=== PATIENT | female | born 1945 | race Caucasian/White ===

== ENCOUNTER 2016-07-14 13:55 | Outpatient (CLI) | payer MEDICARE, OTHER | END 2016-07-14 13:56 | disposition home or self-care (01) | DX: Z12.31 Encounter for screening mammogram for malignant neoplasm of breast (principal) ==

== ENCOUNTER 2017-01-29 08:07 | Outpatient (CLI) | payer MEDICARE, OTHER ==
[2017-01-29 08:48] LABS: BASOPHILS # (AUTO) 0.1 10^3/uL (0.0-0.1); BASOPHILS % (AUTO) 1.6 %; EOSINOPHILS # (AUTO) 0.3 10^3/uL (0.0-0.7); EOSINOPHILS % (AUTO) 4.2 %; HCT - HEMATOCRIT 42.3 % (37.0-47.0); HGB - HEMOGLOBIN 14.1 g/dL (12.0-16.0); LYMPHOCYTES # (AUTO) 3.3 10^3/uL (1.5-3.5); LYMPHOCYTES % (AUTO) 51.1 %; MEAN CORPUSCULAR HEMOGLOBIN 29.9 pg (27.0-31.0); MEAN CORPUSCULAR HGB CONC 33.3 g/dL (32.0-36.0); MEAN CORPUSCULAR VOLUME 89.8 fL (81.0-99.0); MEAN PLATELET VOLUME 8.8 fL (7.9-10.8); MONOCYTES # (AUTO) 0.4 10^3/uL (0.0-1.0); MONOCYTES % (AUTO) 5.9 %; NEUTROPHILS # (AUTO) 2.4 10^3/uL (1.5-6.6); NEUTROPHILS % (AUTO) 37.2 %; NUCLEATED RED BLOOD CELLS AUTO 0.2 /100WBC; RED BLOOD COUNT 4.71 10^6/uL (4.20-5.40); RED CELL DISTRIBUTION WIDTH 13.5 % (12.0-15.0); UNCORRECTED WHITE BLOOD COUNT 6.6 x10^3/uL; WHITE BLOOD COUNT 6.6 x10^3/uL (4.8-10.8)
[2017-01-29 09:02] LABS: HEMOGLOBIN A1C 0.59 g/dL
[2017-01-29 09:10] LABS: ALBUMIN/GLOBULIN RATIO 1.3 (1.0-2.2); BILIRUBIN,TOTAL 0.6 mg/dL (0.2-1.0); BUN - BLOOD UREA NITROGEN 25 mg/dL (6-20); CALCIUM 9.3 mg/dL (8.5-10.3); CARBON DIOXIDE - CO2 27 mmol/L (21-32); CHLORIDE 103 mmol/L (101-111); CHOL/HDL RATIO 4.2 (<4.4); CHOLESTEROL 245 mg/dL; CREATININE 0.8 mg/dL (0.4-1.0); GFR - MDRD 71 (>89); GLUCOSE 99 mg/dL (70-100); HDL CHOLESTEROL 59 mg/dL; POTASSIUM 3.9 mmol/L (3.5-5.0); SODIUM 138 mmol/L (135-145); TOTAL PROTEIN 6.6 g/dL (6.7-8.2); TRIGLYCERIDES 55 mg/dL; VLDL CHOLESTEROL 11 mg/dL
[2017-01-29 09:36] LABS: THYROID STIMULATING HORMONE 5.91 uIU/mL (0.34-5.60)
== END 2017-01-29 08:08 | disposition home or self-care (01) ==
LOC: LAB 08:07
PROVIDERS: ATTEND Family Medicine
DX: R73.01 Impaired fasting glucose (principal); E78.5 Hyperlipidemia, unspecified; E03.9 Hypothyroidism, unspecified; K11.9 Disease of salivary gland, unspecified
CPT/HCPCS: 36415; 80053; 80061; 83036; 84439; 84443; 85025

== ENCOUNTER 2017-04-06 14:02 | Outpatient (CLI) | payer MEDICARE, OTHER ==
--- NOTE | 2017-04-07 14:23 | XRAY Report ---
EXAM: LEFT SHOULDER RADIOGRAPHY EXAM DATE: 04/06/2017 02:30 PM. CLINICAL HISTORY: TMJ CAPSULITIS,UNSP ROTATR-CUFF TEAR/RUPTR OF LEFT. COMPARISON: 03/13/2011. TECHNIQUE: 3 views. FINDINGS: Bones: Bony mineralization appears appropriate. No acute fracture or focal osseous destruction identi fied. Joints: Glenohumeral and acromioclavicular joints with only small amount of degenerative change. No d islocation. Soft tissues: Visualized left lung appears clear. No radiopaque foreign body. IMPRESSION: 1. No acute fracture or dislocation identified. 2. Small amount of glenohumeral and acromioclavicular degenerative change. [facility] Referring Provider Line: [phone] SITE ID: [id number]
--- NOTE | 2017-04-07 14:32 | XRAY Report ---
EXAM: BILATERAL TEMPOROMANDIBULAR JOINT RADIOGRAPHY EXAM DATE: 04/06/2017 02:29 PM. CLINICAL HISTORY: TMJ CAPSULTIS. COMPARISON: None. TECHNIQUE: 5 views including open and closed mouth. FINDINGS: Bones: no fractures or bone lesions. Temporomandibular Joints: The temporomandibular joints appear unremarkable. Sinuses: no opacities or fluid levels. Other: No radiopaque foreign body. IMPRESSION: Unremarkable temporomandibular joint radiography. If clinical concern persists, consider further anatomic delineation and evaluation with dynamic TMJ M RI. [facility] Referring Provider Line: [phone] SITE ID: [id number]
== END 2017-04-06 14:03 | disposition home or self-care (01) ==
LOC: DI 14:02
PROVIDERS: ATTEND Physician Assistant Medical
DX: M19.012 Primary osteoarthritis, left shoulder (principal); M26.69 Other specified disorders of temporomandibular joint
CPT/HCPCS: 70330

== ENCOUNTER 2017-09-23 13:47 | Outpatient (CLI) | payer MEDICARE, OTHER ==
--- NOTE | 2017-09-24 17:02 | Mammography Report ---
DIGITAL SCREENING MAMMOGRAM: 09/23/2017 CLINICAL INDICATION: A 72-year-old nulliparous patient with history of benign biopsy for screening. TECHNIQUE: Routine CC and MLO projections were obtained of the breasts. COMPARISON: 06/2016, 05/2015, 05/2014, 03/2013, 02/2013, 02/2012, 02/2011, 03/2010, 02/2010. FINDINGS: The breasts again demonstrate heterogeneously dense fibroglandular parenchyma bilaterally. Post-biopsy changes in the right breast are stable. Coarse and punctate, typically benign calcifications are present. No suspicious masses, clustered microcalcifications or regions of architectural distortion are identified. IMPRESSION: BENIGN FINDINGS. RECOMMENDATION: Routine annual screening unless otherwise clinically indicated. BIRADS category 2 benign findings. STANDARD QUALIFYING STATEMENTS 1. This examination was reviewed with the aid of Computed-Aided Detection (CAD). 2. A negative or benign imaging report should not delay biopsy if clinically suspicious findings are present. Consider surgical consultation if warranted. More than 5% of cancers are not identified by imaging. 3. Dense breasts may obscure an underlying neoplasm. TD: 09/24/2017 15:14
== END 2017-09-23 13:48 | disposition home or self-care (01) ==
LOC: DI 13:47
PROVIDERS: ATTEND Family Medicine
DX: Z12.31 Encounter for screening mammogram for malignant neoplasm of breast (principal)
CPT/HCPCS: 77067

== ENCOUNTER 2018-02-19 08:54 | Outpatient (CLI) | payer MEDICARE, OTHER ==
[2018-02-19 09:38] LABS: BASOPHILS # (AUTO) 0.1 10^3/uL (0.0-0.1); BASOPHILS % (AUTO) 1.9 %; EOSINOPHILS # (AUTO) 0.6 10^3/uL (0.0-0.7); EOSINOPHILS % (AUTO) 10.3 %; HGB - HEMOGLOBIN 14.6 g/dL (12.0-16.0); LYMPHOCYTES # (AUTO) 2.2 10^3/uL (1.5-3.5); LYMPHOCYTES % (AUTO) 39.2 %; MEAN CORPUSCULAR HEMOGLOBIN 30.7 pg (27.0-31.0); MEAN CORPUSCULAR HGB CONC 34.1 g/dL (32.0-36.0); MEAN CORPUSCULAR VOLUME 90.1 fL (81.0-99.0); MEAN PLATELET VOLUME 9.3 fL (7.9-10.8); MONOCYTES # (AUTO) 0.3 10^3/uL (0.0-1.0); NEUTROPHILS # (AUTO) 2.4 10^3/uL (1.5-6.6); NEUTROPHILS % (AUTO) 42.6 %; PLT - PLATELET COUNT 223 10^3/uL (130-450); RED BLOOD COUNT 4.75 10^6/uL (4.20-5.40); RED CELL DISTRIBUTION WIDTH 13.9 % (12.0-15.0); WHITE BLOOD COUNT 5.5 x10^3/uL (4.8-10.8)
[2018-02-19 09:57] LABS: ALBUMIN 3.9 g/dL (3.2-5.5); ALBUMIN/GLOBULIN RATIO 1.3 (1.0-2.2); ALKALINE PHOSPHATASE 96 IU/L (42-121); ALT ALANINE AMINOTRANSFERASE 21 IU/L (10-60); AST ASPARTATE AMINOTRANSFERASE 23 IU/L (10-42); BUN - BLOOD UREA NITROGEN 16 mg/dL (6-20); CALCIUM 9.4 mg/dL (8.5-10.3); CARBON DIOXIDE - CO2 28 mmol/L (21-32); CHLORIDE 102 mmol/L (101-111); CHOL/HDL RATIO 4.9 (<4.4); CHOLESTEROL 267 mg/dL; CREATININE 0.6 mg/dL (0.4-1.0); GFR - MDRD 98 (>89); GLUCOSE 99 mg/dL (70-100); HDL CHOLESTEROL 55 mg/dL; LDL CHOLESTEROL,CALCULATED 195 mg/dL; LDL/HDL RATIO 3.5 (<4.4); SODIUM 138 mmol/L (135-145); TOTAL PROTEIN 6.9 g/dL (6.7-8.2); VLDL CHOLESTEROL 17 mg/dL
== END 2018-02-19 08:55 | disposition home or self-care (01) ==
LOC: LAB 08:54
PROVIDERS: ATTEND Family Medicine
DX: R73.01 Impaired fasting glucose (principal); E78.5 Hyperlipidemia, unspecified; E03.9 Hypothyroidism, unspecified; M85.80 Other specified disorders of bone density and structure, unspecified site
CPT/HCPCS: 36415; 80053; 80061; 83721; 84443; 85025

== ENCOUNTER 2018-04-09 13:20 | Emergency (ER) | payer MEDICARE, OTHER ==
[2018-04-09 13:28] VITALS: BP 139/84
[2018-04-09] MEDS ORDERED: IPRATROPIUM/ALBUTEROL 3 ML NEB INH STA (13:38)
[2018-04-09] MEDS ORDERED: DEXAMETHASONE 10 MG/ML VIAL PO STA (13:39)
--- NOTE | 2018-04-09 14:09 | XRAY Report ---
Reason: cough soa Procedure Date: 04/09/2018 Accession Number: [id number] / [id number] Procedure: XR - Chest 2 View X-Ray CPT Code: 04401 FULL RESULT: EXAM: CHEST RADIOGRAPHY EXAM DATE: 04/09/2018 01:51 PM. CLINICAL HISTORY: Cough. Shortness of breath. COMPARISON: CHEST 2 VIEW PA/LAT 05/03/2015 8:31 AM. TECHNIQUE: 2 views. FINDINGS: Lungs/Pleura: No focal opacities evident. No pleural effusion. No pneumothorax. Normal volumes. Mediastinum: Heart and mediastinal contours are unremarkable. Other: None. IMPRESSION: Normal 2-view chest radiography. [facility]
--- NOTE | 2018-04-09 14:31 | ED Physician Documentation ---
PD HPI DYSPNEA - Stated complaint Stated Complaint: DIFF BREATHING - Chief complaint Chief Complaint: Resp - History obtained from History obtained from: Patient - History of Present Illness Timing - onset: How many months ago (1) Timing - onset during: Light activity Timing - duration: Months (1) Timing - details: Gradual onset, Still present, Waxing and waning Inciting event(s): URI Improved by: Inhaler/neb Worsened by: Exertion, Coughing Associated symptoms: Cough, Wheezing Similar symptoms before: Diagnosis (bronchitis and asthma) Recently seen: Clinic (for routine physical) - Additional information Additional information: 73-year-old female with chronic persistent asthma who is on albuterol and Qvar has developed worsening of her symptoms and a deep cough. She last had to have a course of steroids several years ago and she does remember that she had something similar to this last year and she improved with use of an antibiotic. Review of Systems Constitutional: reports: Chills, Myalgias, Fatigue Eyes: denies: Decreased vision Ears: denies: Ear pain Nose: reports: Rhinorrhea / runny nose, Congestion Throat: reports: Sore throat Cardiac: denies: Chest pain / pressure, Palpitations Respiratory: reports: Dyspnea, Cough, Wheezing GI: denies: Abdominal Pain, Nausea, Vomiting Skin: denies: Rash Musculoskeletal: denies: Neck pain, Back pain, Extremity pain PD PAST MEDICAL HISTORY - Past Medical History Cardiovascular: High cholesterol Respiratory: Asthma Endocrine/Autoimmune: None GI: None : None HEENT: None Psych: Depression Musculoskeletal: None Derm: None Other Past Medical History: tremors - 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 - Present Medications Home Medications: Ambulatory Orders Medication Instructions Recorded Confirmed Bone Up 4,000 mg PO DAILY 11/28/13 05/03/15 Cholecalciferol (Vitd3)/Vit K2 [D3 5,000 units PO DAILY 11/28/13 05/03/15 + K2 Dots 1,000 Units Tab] [place]-3 Fatty Acids/Fish Oil [Fish 4 cap PO DAILY 11/28/13 05/03/15 Oil 1,000 mg Capsule] RX: Azithromycin [Zithromax] 250 mg PO DAILY #6 tablet 04/09/18 RX: Latanoprost 04/09/18 RX: Pravastatin [Pravachol] 04/09/18 04/09/18 RX: predniSONE [Deltasone] 10 mg PO ONCE #26 tablet 04/09/18 - Allergies Allergies/Adverse Reactions: Allergies Allergy/AdvReac Type Severity Reaction Status Date / Time codeine AdvReac Mild Nausea Verified 04/09/18 13:28 - Social History Does the pt smoke?: No Smoking Status: Never smoker Does the pt drink ETOH?: Yes ETOH Use: Wine Does the pt have substance abuse?: No - Immunizations Immunizations are current?: Yes - POLST Patient has POLST: No PD ED PE NORMAL - Vitals Vital signs reviewed: Yes (normal ) - General General: Alert and oriented X 3, No acute distress, Well developed/nourished - HEENT HEENT: Atraumatic, PERRL, EOMI, Ears normal, Pharynx benign, Dentition benign - Neck Neck: Supple, no meningeal sign - Cardiac Cardiac: RRR, No murmur - Respiratory Respiratory: No respiratory distress, Other (diminished breath sounds bilaterally ) - Abdomen Abdomen: Soft, Non tender - Back Back: No CVA TTP, No spinal TTP - Derm Derm: Normal color, Warm and dry, No rash - Extremities Extremities: No deformity, No edema - Neuro Neuro: Alert and oriented X 3, cleaner greaser 2-12 intact, No motor deficit, No sensory deficit, Normal speech Eye Opening: Spontaneous Motor: Obeys Commands Verbal: Oriented GCS Score: 15 - Psych Psych: Normal mood, Normal affect Results - Vitals Vitals: Vital Signs - 24 hr 04/09/18 04/09/18 04/09/18 13:26 14:15 14:48 Temperature 36.7 C Heart Rate 69 73 77 Respiratory 15 14 16 Rate Blood Pressure 139/84 H O2 Saturation 97 95 Oxygen O2 Source Room air - Rads (name of study) 2 view chest Radiology: Prelim report reviewed (Impression: Normal two-view chest radiography.), EMP read indepedently, See rad report PD MEDICAL DECISION MAKING - ED course Complexity details: reviewed results, re-evaluated patient, considered differ mayo, d/w patient ED course: 73-year-old female with cough and congestion has exacerbation of her asthma she is administered DuoNeb treatment here and she is placed on a course of prednisone and Zithromax. Departure - Departure Disposition: 01 Home, Self Care Clinical Impression: Exacerbation of asthma Qualifiers: Asthma severity: mild Asthma persistence: intermittent Qualified Code(s): J45.21 - Mild intermittent asthma with (acute) exacerbation Condition: Stable Instructions: ED Bronchitis Asthmatic Follow-Up: Bianca Lan DO [Primary Care Provider] - Prescriptions: RX: Azithromycin [Zithromax] 250 mg PO DAILY #6 tablet RX: predniSONE [Deltasone] 10 mg PO ONCE #26 tablet Discharge Date/Time: 04/09/18 14:48
== END 2018-04-09 14:48 | disposition home or self-care (01) ==
LOC: ED 13:20
DX: J45.21 Mild intermittent asthma with (acute) exacerbation (principal)
CPT/HCPCS: 71046; 94640; 99283

== ENCOUNTER 2018-04-21 08:18 | Outpatient (CLI) | payer MEDICARE, OTHER ==
[2018-04-21 09:01] LABS: ALBUMIN 3.7 g/dL (3.2-5.5); ALBUMIN/GLOBULIN RATIO 1.2 (1.0-2.2); ALKALINE PHOSPHATASE 83 IU/L (42-121); ALT ALANINE AMINOTRANSFERASE 26 IU/L (10-60); AST ASPARTATE AMINOTRANSFERASE 23 IU/L (10-42); BILIRUBIN,TOTAL 0.6 mg/dL (0.2-1.0); BUN - BLOOD UREA NITROGEN 20 mg/dL (6-20); CALCIUM 8.8 mg/dL (8.5-10.3); CARBON DIOXIDE - CO2 29 mmol/L (21-32); CHLORIDE 100 mmol/L (101-111); CHOL/HDL RATIO 3.2 (<4.4); CHOLESTEROL 198 mg/dL; CREATININE 0.7 mg/dL (0.4-1.0); GFR - MDRD 82 (>89); GLUCOSE 101 mg/dL (70-100); HDL CHOLESTEROL 61 mg/dL; LDL CHOLESTEROL,CALCULATED 123 mg/dL; SODIUM 136 mmol/L (135-145); TOTAL PROTEIN 6.7 g/dL (6.7-8.2); VLDL CHOLESTEROL 14 mg/dL
[2018-04-22 12:27] LABS: HEPATITIS C ANTIBODY NON-REACTIVE (NON-REACTIVE)
== END 2018-04-21 08:19 | disposition home or self-care (01) ==
LOC: LAB 08:18
PROVIDERS: ATTEND Family Medicine
DX: E78.5 Hyperlipidemia, unspecified (principal); Z11.59 Encounter for screening for other viral diseases
CPT/HCPCS: 36415; 80053; 80061; 83721; 86803

== ENCOUNTER 2019-02-09 09:15 | Outpatient (CLI) | payer MEDICARE, OTHER ==
[2019-02-09 09:54] LABS: BASOPHILS # (AUTO) 0.1 10^3/uL (0.0-0.1); EOSINOPHILS # (AUTO) 0.1 10^3/uL (0.0-0.7); EOSINOPHILS % (AUTO) 2.7 %; HGB - HEMOGLOBIN 13.5 g/dL (12.0-16.0); LYMPHOCYTES # (AUTO) 2.2 10^3/uL (1.5-3.5); MEAN CORPUSCULAR HEMOGLOBIN 29.4 pg (27.0-31.0); MEAN CORPUSCULAR HGB CONC 31.8 g/dL (32.0-36.0); MEAN CORPUSCULAR VOLUME 92.6 fL (81.0-99.0); MEAN PLATELET VOLUME 11.2 fL (7.9-10.8); MONOCYTES # (AUTO) 0.3 10^3/uL (0.0-1.0); MONOCYTES % (AUTO) 6.2 %; NEUTROPHILS # (AUTO) 2.1 10^3/uL (1.5-6.6); NEUTROPHILS % (AUTO) 43.9 %; PLT - PLATELET COUNT 236 10^3/uL (130-450); RED BLOOD COUNT 4.59 10^6/uL (4.20-5.40); RED CELL DISTRIBUTION WIDTH 13.3 % (12.0-15.0); WHITE BLOOD COUNT 4.9 x10^3/uL (4.8-10.8)
[2019-02-09 10:13] LABS: ALBUMIN 3.9 g/dL (3.2-5.5); ALBUMIN/GLOBULIN RATIO 1.5 (1.0-2.2); ALKALINE PHOSPHATASE 66 IU/L (42-121); ALT ALANINE AMINOTRANSFERASE 17 IU/L (10-60); AST ASPARTATE AMINOTRANSFERASE 21 IU/L (10-42); BILIRUBIN,TOTAL 0.9 mg/dL (0.2-1.0); BUN - BLOOD UREA NITROGEN 22 mg/dL (6-20); CALCIUM 9.3 mg/dL (8.5-10.3); CARBON DIOXIDE - CO2 28 mmol/L (21-32); CHLORIDE 105 mmol/L (101-111); CHOL/HDL RATIO 3.9 (<4.4); CHOLESTEROL 198 mg/dL; CREATININE 0.7 mg/dL (0.4-1.0); GFR - MDRD 82 (>89); GLUCOSE 108 mg/dL (70-100); HDL CHOLESTEROL 51 mg/dL; LDL CHOLESTEROL,CALCULATED 136 mg/dL; LDL/HDL RATIO 2.7 (<4.4); SODIUM 141 mmol/L (135-145); TOTAL PROTEIN 6.5 g/dL (6.7-8.2); VLDL CHOLESTEROL 11 mg/dL
== END 2019-02-09 09:16 | disposition home or self-care (01) ==
LOC: LAB 09:15
PROVIDERS: ATTEND Nurse Practitioner
DX: E78.5 Hyperlipidemia, unspecified (principal); R73.01 Impaired fasting glucose; F41.8 Other specified anxiety disorders; J45.909 Unspecified asthma, uncomplicated
CPT/HCPCS: 36415; 80053; 80061; 83721; 84443; 85025

== ENCOUNTER 2019-02-14 13:29 | Emergency (ER) | payer MEDICARE, OTHER ==
--- NOTE | 2019-02-14 14:20 | ED Physician Documentation ---
PD HPI URI - Stated complaint Stated Complaint: COLD SX/COUGH - Chief complaint Chief Complaint: Resp - History obtained from History obtained from: Patient - History of Present Illness Timing - onset: How many days ago (4) Timing duration: Days (4) Timing details: Abrupt onset, Still present Associated symptoms: Productive cough, Dyspnea (increased wheezing from asthma, Improved with MDI.). No: Fever, Chills Contributing factors: COPD / asthma. No: Sick contact, Travel, Immunocompromised Similar symptoms before: Diagnosis (intermittent URI/bronchitis that exacerbates asthma.) Review of Systems Constitutional: denies: Fever, Chills, Myalgias Nose: reports: Congestion. 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 - Present Medications Home Medications: Ambulatory Orders Medication Instructions Recorded Confirmed Bone Up 4,000 mg PO DAILY 11/28/13 05/03/15 Cholecalciferol (Vitd3)/Vit K2 [D3 5,000 units PO DAILY 11/28/13 05/03/15 + K2 Dots 1,000 Units Tab] [place]-3 Fatty Acids/Fish Oil [Fish 4 cap PO DAILY 11/28/13 05/03/15 Oil 1,000 mg Capsule] Azithromycin [Zithromax] 250 mg PO DAILY #6 tablet 04/09/18 Latanoprost 04/09/18 Pravastatin [Pravachol] 04/09/18 04/09/18 predniSONE [Deltasone] 10 mg PO ONCE #26 tablet 04/09/18 Benzonatate [Tessalon Perle] 100 mg PO TID PRN #25 capsule 02/14/19 Doxycycline Monohydrate 100 mg PO BID #14 tablet 02/14/19 dexAMETHasone [Decadron] 4 mg PO DAILY #7 tablet 02/14/19 - Allergies Allergies/Adverse Reactions: Allergies Allergy/AdvReac Type Severity Reaction Status Date / Time codeine AdvReac Mild Nausea Verified 04/09/18 13:28 - Social History Does the pt smoke?: No Smoking Status: Never smoker Does the pt drink ETOH?: Yes Does the pt have substance abuse?: No - Immunizations Immunizations are current?: Yes - POLST Patient has POLST: No PD ED PE NORMAL - Vitals Vital signs reviewed: Yes - General General: Alert and oriented X 3, No acute distress, Well developed/nourished - HEENT HEENT: Ears normal, Pharynx benign - Neck Neck: Supple, no meningeal sign, No adenopathy - Cardiac Cardiac: RRR, No murmur - Respiratory Respiratory: Clear bilaterally - Derm Derm: Normal color, Warm and dry - Extremities Extremities: No tenderness to palpate, No edema, No calf tenderness / cord - Neuro Neuro: Alert and oriented X 3, No motor deficit, Normal speech Results - Vitals Vitals: Vital Signs - 24 hr 02/14/19 02/14/19 13:38 15:14 Temperature 36.9 C Heart Rate 73 73 Respiratory 18 16 Rate Blood Pressure 109/45 L 118/59 L O2 Saturation 98 99 Oxygen O2 Source Room air - Rads (name of study) chest xray Radiology: Prelim report reviewed (no infiltrates.), See rad report PD MEDICAL DECISION MAKING - ED course Complexity details: considered differential (URI/bronchitis symptoms in history of asthma. ), d/w patient Departure - Departure Disposition: 01 Home, Self Care Clinical Impression: Upper respiratory infection Qualifiers: URI type: unspecified URI Qualified Code(s): J06.9 - Acute upper respiratory infection, unspecified Exacerbation of asthma Qualifiers: Asthma severity: unspecified severity Asthma persistence: intermittent Qualified Code(s): J45.21 - Mild intermittent asthma with (acute) exacerbation Condition: Stable Record reviewed to determine appropriate education?: Yes Follow-Up: Ita Trujillo ARNP, PANEL MONITOR-C [Primary Care Provider] - Prescriptions: Benzonatate [Tessalon Perle] 100 mg PO TID PRN #25 capsule PRN Reason: Cough dexAMETHasone [Decadron] 4 mg PO DAILY #7 tablet Doxycycline Monohydrate 100 mg PO BID #14 tablet Comments: Your chest x-ray the is clear so no pneumonia. This more likely is a viral illness with inflammation of the upper airway. We will treat that with Decadron steroid for a week and Tessalon if needed for cough suppression. Given your asthma, there is possibility for triggering of bronchitis and so we can go with an antibiotic doxycycline as well. Recheck if not improving well over the next several days. Discharge Date/Time: 02/14/19 15:14
--- NOTE | 2019-02-14 14:29 | XRAY Report ---
Reason: cough Procedure Date: 02/14/2019 Accession Number: [id number] / [id number] Procedure: XR - Chest 2 View X-Ray CPT Code: 14508 FULL RESULT: EXAM: CHEST RADIOGRAPHY EXAM DATE: 02/14/2019 01:54 PM. CLINICAL HISTORY: Cough. COMPARISON: CHEST 2 VIEW 04/09/2018 1:43 PM. TECHNIQUE: 2 views. FINDINGS: LUNGS: The lungs are clear. PLEURA: No significant pleural effusion. No clinically significant pneumothorax. MEDIASTINUM: The cardiomediastinal silhouette is unremarkable. BONES: No suspicious osseous lesions. Other: Calcification overlies the region of gallbladder fossa may present in a gallstone in the gallbladder. Question right diaphragmatic eventration, similar to prior. IMPRESSION: No acute cardiopulmonary abnormality. [facility]
[2019-02-14] MEDS ORDERED: DOXYCYCLINE 100 MG TABLET PO STA (14:57)
[2019-02-14] MEDS ORDERED: BENZONATATE 100 MG CAPSULE PO STA (14:57)
[2019-02-14] MEDS ORDERED: DEXAMETHASONE 10 MG/ML VIAL PO STA (14:57)
[2019-02-14] MEDS ORDERED: CHERRY SYRUP 10 ML UDC PO ONE (14:57)
[2019-02-14 15:15] VITALS: BP 118/59
== END 2019-02-14 15:14 | disposition home or self-care (01) ==
LOC: ED 13:29
DX: J06.9 Acute upper respiratory infection, unspecified (principal); J45.21 Mild intermittent asthma with (acute) exacerbation
CPT/HCPCS: 71046; 99283; 99284; A9270